=== PATIENT | male | born 1965 | race Caucasian/White ===

== ENCOUNTER 2016-12-21 20:35 | Emergency (ER) | payer OTHER ==
[~2016-12-21] VITALS: Ht 177.8 cm; Wt 122.5 kg
[2016-12-21] MEDS ORDERED: LIDOCAINE 1% MDV 20ML VIAL As Ordered ONE (22:28)
[2016-12-21] MEDS ORDERED: LIDOCAINE 2% MDV 20 ML VIAL SC ONE (22:30)
[2016-12-21] MEDS ORDERED: PERCOCET 5MG/325MG TAB PO ONE (22:30)
[2016-12-21 23:03] VITALS: BP 132/68
== END 2016-12-21 23:08 | disposition home or self-care (01) ==
LOC: M ED 23:05
DX: S61.211A Laceration without foreign body of left index finger without damage to nail, initial encounter (principal); W25.XXXA Contact with sharp glass, initial encounter; Y92.099 Unspecified place in other non-institutional residence as the place of occurrence of the external cause; Y93.E9 Activity, other interior property and clothing maintenance; Y99.9 Unspecified external cause status

== ENCOUNTER 2017-06-21 11:28 | Day surgery (SDC) | payer OTHER ==
[~2017-06-21] VITALS: Ht 180.3 cm; Wt 121.1 kg
[2017-06-21] MEDS ORDERED: NS 1,000 ML IV ONE (11:45)
[2017-06-21] MEDS ORDERED: PROPOFOL 200 MG/20 ML VIAL As Ordered ONE ×2 (12:15→12:42)
[2017-06-21 12:55] VITALS: BP 105/70
--- NOTE | 2017-06-21 12:55 | ROOR ---
Patient Name: Charlie Garcia Procedure Date: 06/21/2017 12:34 PM Date of : 1965 Age: 51 Room: [facility] Gender: Male Note Status: Finalized Procedure: Total Colonoscopy to Cecum Indications: Screening for colorectal malignant neoplasm Providers: Vance Marcos MD Referring MD: YASMIN HOFFMAN MD Requesting Provider: Medicines: Monitored Anesthesia Care Complications: No immediate complications. Procedure: Pre-Anesthesia Assessment: - The heart rate, respiratory rate, oxygen saturations, blood pressure, adequacy of pulmonary ventilation, and response to care were monitored throughout the procedure. The Colonoscope was introduced through the anus and advanced to the cecum, identified by appendiceal orifice and ileocecal valve. The colonoscopy was performed without difficulty. The patient tolerated the procedure well. The quality of the bowel preparation was excellent. Findings: The perianal and digital rectal examinations were normal. Non-bleeding internal hemorrhoids were found during retroflexion. The hemorrhoids were small and Grade I (internal hemorrhoids that do not prolapse). No other significant abnormalities were identified in a careful examination of the remainder of the colon. The exam was otherwise without abnormality on direct and retroflexion views. Impression: - Non-bleeding internal hemorrhoids. - The examination was otherwise normal on direct and retroflexion views. - No specimens collected. - The exam was otherwise normal to the cecum. Recommendation: - Patient has a contact number available for emergencies. The signs and symptoms of potential delayed complications were discussed with the patient. Return to normal activities tomorrow. Written discharge instructions were provided to the patient. - High fiber diet. - Discharge patient to home. - Continue present medications. - Repeat colonoscopy in 10 years for screening purposes. - Return to referring physician. - The findings and recommendations were discussed with the patient's family. Vance Marcos MD Vance Marcos MD 06/21/2017 12:55:06 PM This report has been signed electronically. Number of Addenda: 0 Note Initiated On: 06/21/2017 12:34 PM Estimated Blood Loss: Estimated blood loss: none.
== END 2017-06-21 13:33 | disposition home or self-care (01) ==
LOC: M OPP 11:28
PROVIDERS: ATTEND Internal Medicine Gastroenterology
DX: Z12.11 Encounter for screening for malignant neoplasm of colon (principal); K64.0 First degree hemorrhoids; I48.91 Unspecified atrial fibrillation; Z86.19 Personal history of other infectious and parasitic diseases; G47.8 Other sleep disorders; J00 Acute nasopharyngitis [common cold]; G47.30 Sleep apnea, unspecified; R06.83 Snoring; F17.210 Nicotine dependence, cigarettes, uncomplicated; Z80.0 Family history of malignant neoplasm of digestive organs; Z80.7 Family history of other malignant neoplasms of lymphoid, hematopoietic and related tissues